=== PATIENT | male | born 1975 | race Caucasian/White ===

== ENCOUNTER 2018-05-03 13:35 | Emergency (ER) | payer OTHER ==
[~2018-05-03] VITALS: Ht 170.2 cm; Wt 83.9 kg
[2018-05-03] MEDS ORDERED: COREG25 MG PO (13:46)
[2018-05-03] MEDS ORDERED: LISINOPRIL20 MG PO (13:46)
[2018-05-03] MEDS ORDERED: MYDAYIS ER 50 M50 MG PO (13:47)
[2018-05-03] MEDS ORDERED: AMLODIPINE BESY10 MG PO (13:47)
[2018-05-03] MEDS ORDERED: CHLORTHALIDONE50 MG PO (13:47)
[2018-05-03] MEDS ORDERED: GENVOYA TABLET1 EACH PO (13:47)
[2018-05-03 14:05] LABS: ABSOLUTE BASOPHILS 0.1 thou/uL (0.0-0.2); ABSOLUTE EOSINOPHILS 0.8 thou/uL (0.0-0.7); ABSOLUTE LYMPHOCYTES 5.1 thou/uL (0.8-5.3); ABSOLUTE MONOCYTES 0.8 thou/uL (0.0-1.2); ABSOLUTE NEUTROPHILS 3.2 thou/uL (1.6-8.1); EOSINOPHILS 8.1 %; HEMATOCRIT 45.8 % (42.0-52.0); HEMOGLOBIN 15.7 gm/dL (14.0-18.0); MCH 29.9 pg (26.0-34.0); MCHC 34.4 g/dL (28.0-37.0); MONOCYTES 7.8 %; MPV 9.3 fl. (7.2-11.1); NUCLEATED RBCS 0 /100WBC; PLATELET COUNT* 318 thou/uL (150-400); POLYS 32.1 %; RBC 5.26 mil/uL (4.50-6.00); RDW-CV 13.6 % (10.5-14.5)
[2018-05-03 14:09] LABS: CALCIUM 9.9 mg/dL (8.5-10.1); CREATININE 1.5 mg/dL (0.6-1.3)
[2018-05-03 14:10] LABS: POTASSIUM 2.9 mmol/L (3.5-5.1)
[2018-05-03 14:13] LABS: ALBUMIN 4.5 g/dL (3.4-5.0); TOTAL BILIRUBIN 0.6 mg/dL (<0.1-1.0); TOTAL PROTEIN 8.9 g/dL (6.4-8.2)
--- NOTE | 2018-05-03 16:24 | EKG ---
[place] [address] ELECTROCARDIOGRAM REPORT Name: RAVEN FERRER Room: [facility]#: [id number] Admission: 05/03/18 Attend Phys: Discharge: Date of : 75 Report #: [id number] THIS REPORT FOR: //name// [facility] ED Test Date: 2018-05-03 Test Time: 14:14:12 Pat Name: RAVEN FERRER Department: Room: Gender: M Network Development Coordinator: FRANKI : 1975 Requested By: Art Ruiz Order Number: [id number] MD: Jeff Emanuel Measurements Intervals [place] Rate: 78 P: 70 OR: 121 QRS: 237 QRSD: 181 T: 13 QT: 461 QTc: 526 Interpretive Statements Atrial-sensed ventricular-paced rhythm No further analysis attempted due to paced rhythm No previous ECG available for comparison Electronically Signed On 05-03-2018 16:24:40 CDT by Jeff Emanuel [email or web address] <ELECTRONICALLY SIGNED> By: Jeff Emanuel MD, [facility] 05/03/18 1624 1414 1414 Jeff Emanuel MD, FACC /EPI
[2018-05-03 16:43] LABS: CALCIUM 9.5 mg/dL (8.5-10.1); CREATININE 1.4 mg/dL (0.6-1.3); MAGNESIUM 2.2 mg/dL (1.8-2.4); POTASSIUM 3.3 mmol/L (3.5-5.1)
[2018-05-03 17:10] VITALS: BP 127/80
== END 2018-05-03 17:11 | disposition home or self-care (01) ==
LOC: M.ERS 13:35
PROVIDERS: Physician Assistant
DX: R10.11 Right upper quadrant pain (principal); E87.6 Hypokalemia; R11.0 Nausea; I10 Essential (primary) hypertension; Z95.0 Presence of cardiac pacemaker; Z88.2 Allergy status to sulfonamides; Z88.8 Allergy status to other drugs, medicaments and biological substances